=== PATIENT | male | born 1975 | race Hispanic/Latino ===

== ENCOUNTER 2019-08-30 11:31 | Inpatient (IN) | payer SELFPAY ==
[2019-08-30] MEDS ORDERED: ACETAMINOPHEN 500 MG TAB PO ONE (12:05)
[2019-08-30] MEDS ORDERED: SODIUM CHLORIDE 0.9% 1000ML 1,000 ML IVS ONE (12:05)
--- NOTE | 2019-08-30 12:09 | ED.PDOC ---
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 Denies: chills EENTM: States: no symptoms reported Respiratory: States: cough, short of breath Cardiology: States: no symptoms reported Gastrointestinal/Abdominal: States: no symptoms reported Genitourinary: States: no symptoms reported Musculoskeletal: States: no symptoms reported. Denies: neck pain Skin: States: no symptoms reported Neurological: States: no symptoms reported Endocrine: States: no symptoms reported Hematologic/Lymphatic: States: no symptoms reported All other Systems: Reviewed and Negative Past Medical History (General) - Patient Medical History Hx Stroke: No Hx Congestive Heart Failure: No Hx Diabetes: No Surgical History: no surgical history - Vaccination History Hx Influenza Vaccination: No - Social History Hx Tobacco Use: Yes Family Medical History - Family History Father Family History: Unknown Living Status: Unknown Physical Exam - Physical Exam General Appearance: Alert, Other - Coughing during exam but otherwise comfortable appearing ENT Exam: normal ENT inspection Neck: non-tender, full range of motion Respiratory: no respiratory distress, no accessory muscle use, decreased breath sounds Cardiovascular/Chest: regular rate, rhythm, no edema Gastrointestinal/Abdominal: normal bowel sounds, non tender Extremity: normal range of motion, non-tender 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 Here with 102F temp and satting 86-89% on room air. Placed on 3L NC satting 94%. Labs with WBC 12.7k, elevated AST > ALT, anion gap 19. CXR with right sided infiltrates and cardiomegaly. Discussed with patient who agrees to admission and discussed with Haylee Landaverde who agrees to accept patient for pneumonia with sepsis and acute hypoxic respiratory failure. Patient given Rocephin, Azithromycin, and Vancomycin. - Results/Orders Results/Orders: CXR: Reporting MD: Alan Lin Room Worker date: Dictation date: EXAM DESCRIPTION: Chest,2 Views CLINICAL HISTORY: 43 years Male, Cough , fever, decreased breath sounds COMPARISON: None. TECHNIQUE: Frontal and lateral views of the chest. IMPRESSION: Enlarged cardiac silhouette. Bibasilar consolidation in the right greater left lungs which may represent pulmonary edema versus pneumonia or aspiration. No pleural effusion or pneumothorax. Thoracic spondylosis. Electronically signed by: Alan Lin MD 08/30/2019 12:49 PM CDT 08/30/19 12:04 IV:Start .ONCE 08/30/19 12:05 Sodium Chloride 0.9% 1000ML [Ns 1000 ml] 1,000 ml IVS ONCE 08/30/19 12:15 EKG .ONCE 08/30/19 12:43 cefTRIAXone SODIUM [Rocephin] 2 gm Sodium Chl 0.9% 100Ml Mini-Bag [NS 100ml MINI-BAG+] 100 ml IVPB ONCE 08/30/19 12:58 BLOOD CULTURE Stat 08/31/19 09:00 Oxygen Daily Laboratory Results - last 24 hr 08/30/19 08/30/19 08/30/19 12:24 12:24 12:24 WBC 12.7 H RBC 3.84 L Hgb 12.6 L Hct 37.0 L MCV 96.4 H MCH 32.8 H MCHC 34.0 RDW 14.0 Plt Count 467 H MPV 9.3 Absolute Neuts (auto) 11.00 H Absolute Lymphs (auto) 1.20 Absolute Monos (auto) 0.40 Absolute Eos (auto) 0.00 Absolute Basos (auto) 0.10 Neutrophils % 86.5 H Lymphocytes % 9.5 L Monocytes % 3.4 Eosinophils % 0.0 L Basophils % 0.6 Sodium 136 Potassium 3.7 Chloride 97 L Carbon Dioxide 23 Anion Gap 19.7 H BUN 9 Creatinine 0.76 BUN/Creatinine Ratio 11.8 Random Glucose 109 H Serum Osmolality 271.2 L Lactic Acid Calcium 9.0 Total Bilirubin 0.5 AST 275 H ALT 118 H Alkaline Phosphatase 116 Troponin I 0.02 Serum Total Protein 8.5 H Albumin 2.9 L Globulin 5.6 H Albumin/Globulin Ratio 0.5 L 08/30/19 12:24 WBC RBC Hgb Hct MCV MCH MCHC RDW Plt Count MPV Absolute Neuts (auto) Absolute Lymphs (auto) Absolute Monos (auto) Absolute Eos (auto) Absolute Basos (auto) Neutrophils % Lymphocytes % Monocytes % Eosinophils % Basophils % Sodium Potassium Chloride Carbon Dioxide Anion Gap BUN Creatinine BUN/Creatinine Ratio Random Glucose Serum Osmolality Lactic Acid 1.3 Calcium Total Bilirubin AST ALT Alkaline Phosphatase Troponin I Serum Total Protein Albumin Globulin Albumin/Globulin Ratio - EKG/XRAY/CT EKG: Sinus, no ST T wave changes Departure - Departure Clinical Impression: Sepsis due to pneumonia, Sepsis with acute hypoxic respiratory failure, Transaminitis Disposition: Admit Patient Condition: Fair Home Medications: Ambulatory Orders NK 08/30/19 Decision To Admit - Decistion To Admit Decision to Admit Reason: Admit from ER - Sepsis with pneumonia and acute hypoxic respiratory failure Decision to Admit Date: 08/30/19 Decision to Admit Time: 13:06
[2019-08-30] MEDS ORDERED: AZITHROMYCIN 250 MG TAB PO ONE (12:43)
[2019-08-30] MEDS ORDERED: cefTRIAXone SODIUM 2 GM in SODIUM CHL 0.9% 100ML MINI-BAG 100 ML IVPB ONE (12:43)
[2019-08-30] MEDS ORDERED: SODIUM CHL 0.9% 100ML MINI-BAG 100 ML IVPB ONE (12:47)
--- NOTE | 2019-08-30 12:50 | RAD ---
EXAM DESCRIPTION: Chest,2 Views CLINICAL HISTORY: 43 years Male, Cough , fever, decreased breath sounds COMPARISON: None. TECHNIQUE: Frontal and lateral views of the chest. IMPRESSION: Enlarged cardiac silhouette. Bibasilar consolidation in the right greater left lungs which may represent pulmonary edema versus pneumonia or aspiration. No pleural effusion or pneumothorax. Thoracic spondylosis. Electronically signed by: Alan Lin MD 08/30/2019 12:49 PM CDT
--- NOTE | 2019-08-30 13:19 | HP ---
SUPERVISING PHYSICIAN: Milan Betancourt M.D. CHIEF COMPLAINT: Fever, couth and elevated blood pressure. HISTORY OF PRESENT ILLNESS: This is a 43 year-old male patient who speaks very little [place]an, who came to the Emergency Room today due to elevated fever as well as coughing and shortness of breath that had been going on for about 8 days. His temperature in the Emergency Room was 102.1 with heart rate of 98, blood pressure 185/116, respiratory rate 20, O2 sat 94%. Labs were done and his WBC were 12,700 with hemoglobin 12.6, hematocrit 37 with a left shift on his differential. Sodium 136, potassium 3.7, chloride 97, carbon dioxide 23, BUN 9, creatinine 0.76, glucose 109. AST 275, ALT 118, lactic acid 1.3, troponin 0.02. Blood cultures were completed as well as Influenza A and B that were negative. Chest x-ray showed enlarged cardiac silhouette with bibasilar consolidation, right greater than left which may represent pulmonary edema versus pneumonia or aspiration. No pleural effusion or pneumothorax. He was given some fluids in the Emergency Room as well as some azithromycin and Rocephin. I was called for admission to the hospital. PAST MEDICAL HISTORY: None. PAST SURGICAL HISTORY: None. OUTPATIENT MEDICATIONS: None. ALLERGIES: NO KNOWN DRUG ALLERGIES. FAMILY HISTORY: Unknown. SOCIAL HISTORY: He smokes about 1 pack of cigarettes weekly and he drinks alcoholic beverages 4 to 5 times a week, but he drinks 5 to 10 drinks each night. He has not had any alcoholic beverages in 8 days. REVIEW OF SYSTEMS: Very difficult to get a complete review of systems but he is positive for coughing, headache, muscle aches, shortness of breath and fever. Denies nausea and vomiting. PHYSICAL EXAMINATION: VITAL SIGNS: Temperature 99.4, heart rate 92, blood pressure 165/105, respiratory rate 18, O2 sat 94% on 4 liters nasal cannula. GENERAL: This is a 43 year-old moderately obese male patient who is lying in his hospital bed. He is in mild respiratory distress. HEENT: Normocephalic and atraumatic. Pupils are equal and reactive. Oropharynx is clear. NECK: Supple without mass. RESPIRATORY: Diminished breath sounds at the bases more so on the right than the left. He does have some scattered rhonchi. CHEST: There is equal rise and fall of the chest with inspiration and expiration. CARDIOVASCULAR: Regular rate and rhythm. GASTROINTESTINAL: Abdomen is soft, nondistended, non-tender. Bowel sounds are positive. EXTREMITIES: No clubbing, cyanosis or edema. NEUROLOGIC: He is awake, alert and oriented times three. Cranial nerves II-XII are grossly intact. Skin is warm and dry. LABORATORY: Labs and films are as per the history of present illness. ASSESSMENT: 1. Sepsis related to bibasilar pneumonia most likely community acquired, the right side is worse than the left. His admitting WBCs were 12,700 with a left shift. Temperature 102.1 and heart rate 98. 2. Elevated blood pressure without a diagnosis of hypertension. 3. Cardiomegaly by chest x-ray. 4. Elevated liver function tests most likely secondary to excessive alcohol intake. 5. Tobacco abuse. 6. ETOH abuse. PLAN: I have admitted the patient to the hospital. I have initiated the pneumonia guidelines. I will continue with the Rocephin and the Zithromax as previously ordered, including aggressive pulmonary hygiene, including scheduled and p.r.n. respiratory treatments. He received some Clonidine tonight for his blood pressure and I will start him on a low dose of Lisinopril for his blood pressure. I will repeat his lab in the morning and watch his liver enzymes closely. He will have a PPI for ulcer prophylaxis as well as Lovenox for DVT prophylaxis. Will continue to monitor closely and follow as needed. #[id number] [facility]
[2019-08-30] MEDS ORDERED: ONDANSETRON INJ 4 MG/2 ML VIAL IV PRN (13:42)
[2019-08-30] MEDS ORDERED: cloNIDine HCL 0.1 MG TAB PO ONE (15:07)
[2019-08-30] MEDS: IV SET AND CAP CHANGE INJ INJ SCH (15:09)
[2019-08-30] MEDS: KCL 20 MEQ/NS 1,000 ML IVS PRN ×2 (15:16→23:04)
[2019-08-30] MEDS: ALBUTEROL SULFATE 2.5 MG/3 ML VIAL NEB SCH ×2 (16:34→20:22)
[2019-08-30] MEDS ORDERED: PANTOPRAZOLE SODIUM IV 40 MG VIAL ONE (19:32)
[2019-08-30] MEDS: LISINOPRIL 10 MG TAB PO SCH (19:47)
[2019-08-30] MEDS: ACETAMINOPHEN 325 MG TAB PO PRN (20:00)
[2019-08-30] MEDS: SODIUM CHLORIDE 0.9% (FLUSH) 10 ML SYG IV SCH (20:04)
[2019-08-30] MEDS: ENOXAPARIN SODIUM 40 MG/0.4 ML SYG SUBCU SCH (20:04)
[2019-08-31] MEDS: ALBUTEROL SULFATE 2.5 MG/3 ML VIAL NEB PRN (00:10)
[2019-08-31] MEDS ORDERED: cloNIDine HCL 0.1 MG TAB ONE (00:35)
[2019-08-31] MEDS: cloNIDine HCL 0.1 MG TAB PO PRN ×3 (00:43→15:27)
[2019-08-31] MEDS: ACETAMINOPHEN 325 MG TAB PO PRN (05:43)
[2019-08-31] MEDS: PANTOPRAZOLE SODIUM IV 40 MG VIAL IV SCH (05:44)
[2019-08-31] MEDS: KCL 20 MEQ/NS 1,000 ML IVS PRN ×2 (06:38→17:46)
[2019-08-31] MEDS ORDERED: SODIUM CHL 0.9% 50ML MIN-BAG+ 50 ML IVPB ONE (07:00)
[2019-08-31] MEDS ORDERED: cefTRIAXone SODIUM 1 GM VIAL ONE (07:01)
[2019-08-31] MEDS: LISINOPRIL 10 MG TAB PO SCH (08:14)
[2019-08-31] MEDS: cefTRIAXone SODIUM 1 GM in SODIUM CHL 0.9% 50ML MIN-BAG+ 50 ML IVPB SCH (08:15)
[2019-08-31] MEDS: SODIUM CHLORIDE 0.9% (FLUSH) 10 ML SYG IV SCH ×2 (08:15→21:07)
[2019-08-31] MEDS: ALBUTEROL SULFATE 2.5 MG/3 ML VIAL NEB SCH ×4 (08:23→20:17)
--- NOTE | 2019-08-31 08:36 | RAD ---
Procedure: XR CHEST 2 VIEWS Exam Date: 08/31/2019 Ordering Provider: Haylee Landaverde NP Clinical Indication: Pneumonia Comparison: 08/30/2019 Findings: Cardiomegaly. Bilateral perihilar and bibasilar infiltrates are not significantly changed from prior. No significant pleural effusion. No pneumothorax. No acute osseous abnormality. Impression: 1. Stable multifocal pneumonia. Electronically signed by: Enrique Box MD 08/31/2019 8:34 AM CDT
[2019-08-31] MEDS ORDERED: AZITHROMYCIN IV 500 MG VIAL IVPB ONE (09:19)
[2019-08-31] MEDS ORDERED: SODIUM CHLORIDE 0.9% 250ML 250 ML ONE (09:19)
[2019-08-31] MEDS: AZITHROMYCIN IV 500 MG in SODIUM CHLORIDE 0.9% 250ML 250 ML IVPB SCH (09:26)
[2019-08-31] MEDS ORDERED: methylPREDNISolone SODIUM SUC 125 MG/2 ML VIAL IV ONE (10:33)
--- NOTE | 2019-08-31 10:37 | PN ---
SUPERVISING PHYSICIAN: Sosa Betancourt MD DATE: 08/31/19 SUBJECTIVE: The patient is lying in bed. A associate embalmer/funeral director is present today. He states he is feeling much better with minimal shortness of breath and coughing. I explained to him that we started him on some antihypertensive medications and he agreed. No nausea, vomiting or chest pain. OBJECTIVE: VITAL SIGNS: Temperature 99.5. Heart rate 83. Blood pressure 161/99. Respiratory rate 22. O2 saturation 90% on 4 liters nasal cannula. RESPIRATORY: Diminished breath sounds throughout with a few scattered wheezing in the apices. CARDIAC: Regular rate and rhythm. GASTROINTESTINAL: Abdomen is soft, nondistended, nontender. Bowel sounds are positive. NEUROLOGIC: Awake, alert and oriented times three. LABORATORY: WBCs have improved to 10,900. Hemoglobin 11.3, hematocrit 33.7. Neutrophils 83%. Electrolytes are basically within normal limits. AST has improved slightly to 258, ALT 120. Sputum culture is pending. Preliminary blood cultures are negative to date. Chest x-ray shows stable multifocal pneumonia and no changes from prior. All other labs and films have been reviewed via the EMR. ASSESSMENT: 1. Sepsis related to bibasilar pneumonia most likely community acquired, the right side is worse than the left. His admitting WBCs were 12,700 with a left shift. Temperature 102.1 and heart rate 98. 2. Elevated blood pressure without a diagnosis of hypertension. 3. Cardiomegaly by chest x-ray. 4. Elevated liver function tests most likely secondary to excessive alcohol intake. 5. Tobacco abuse. 6. ETOH abuse. PLAN: We will continue present supportive care including his current antibiotic treatment as well as his aggressive pulmonary hygiene. I may add a small dose of IV steroids due to the wheezing. He has been started on lisinopril for his hypertension and has needed clonidine several times during the night. He will need to go home on that medication. I have had an echocardiogram pending due to his cardiomegaly. I will repeat his lab in the morning. We will continue to monitor the patient closely and follow as needed. #[id number] [facility]
[2019-08-31] MEDS ORDERED: LISINOPRIL 10 MG TAB PO ONE (16:35)
[2019-08-31] MEDS ORDERED: cloNIDine HCL 0.1 MG TAB PO ONE (16:35)
[2019-08-31] MEDS: methylPREDNISolone SODIUM SUC 40 MG/ML VIAL IV SCH (17:49)
[2019-08-31] MEDS: ENOXAPARIN SODIUM 40 MG/0.4 ML SYG SUBCU SCH (20:34)
[2019-09-01] MEDS: methylPREDNISolone SODIUM SUC 40 MG/ML VIAL IV SCH ×5 (00:04→23:13)
[2019-09-01] MEDS: cloNIDine HCL 0.1 MG TAB PO PRN (00:20)
[2019-09-01] MEDS ORDERED: cloNIDine HCL 0.1 MG TAB PO ONE (02:15)
[2019-09-01] MEDS ORDERED: BENZOCAINE-MENTH LOZ (CEPACOL) 1 EA LOZ MT PRN (05:46)
[2019-09-01] MEDS: PANTOPRAZOLE SODIUM IV 40 MG VIAL IV SCH (05:51)
[2019-09-01] MEDS: SODIUM CHLORIDE 0.9% (FLUSH) 10 ML SYG IV PRN (05:53)
[2019-09-01] MEDS: ALBUTEROL SULFATE 2.5 MG/3 ML VIAL NEB PRN (06:17)
[2019-09-01] MEDS ORDERED: LISINOPRIL 10 MG TAB ONE (06:52)
[2019-09-01] MEDS ORDERED: cefTRIAXone SODIUM 1 GM VIAL ONE (06:52)
[2019-09-01] MEDS ORDERED: SODIUM CHL 0.9% 50ML MIN-BAG+ 50 ML IVPB ONE (06:52)
[2019-09-01] MEDS: ALBUTEROL SULFATE 2.5 MG/3 ML VIAL NEB SCH ×4 (08:09→19:57)
[2019-09-01] MEDS: LISINOPRIL 10 MG TAB PO SCH (08:50)
[2019-09-01] MEDS: cefTRIAXone SODIUM 1 GM in SODIUM CHL 0.9% 50ML MIN-BAG+ 50 ML IVPB SCH (08:50)
[2019-09-01] MEDS: SODIUM CHLORIDE 0.9% (FLUSH) 10 ML SYG IV SCH ×2 (08:50→20:41)
--- NOTE | 2019-09-01 09:11 | CT ---
EXAM DESCRIPTION: Chest w/o Contrast CLINICAL HISTORY: 43 years, Male, hypoxic; pna COMPARISON: None TECHNIQUE: Thin-section noncontrast axial CT images are obtained according to our protocol. Reconstructed MPR images are created and reviewed as well. FINDINGS: Lungs: Extensive pulmonary consolidation with appearance most consistent with pneumonia. Lower lobes, right middle lobe and lingula are more extensively involved than the other segments of the upper lobes. No worrisome pulmonary mass or nodule. Mediastinum: Multiple mildly enlarged lymph nodes in the right peritracheal, subcarinal and hilar regions. Subcarinal node behind the right lower lobe bronchus measures 1.4 cm short axis dimension. Lower paratracheal node with a fatty hilum measures 7 mm short axis dimension. 9 mm paraesophageal and paratracheal nodes. Normal vascular contours. Heart size is normal with no pericardial effusion. Chest wall/axilla: No mass or adenopathy. Lower neck/supraclavicular: No mass or adenopathy. Upper abdomen: Unremarkable upper abdominal viscera. Coronal and sagittal reformatted images confirm the findings. Flattened anterior T8 vertebral body may be congenital anomaly or old traumatic compression. IMPRESSION: Extensive bilateral pulmonary infiltrates consistent with pneumonia. Mediastinal adenopathy, most likely reactive. This exam was performed according to our departmental dose-optimization program, which includes automated exposure control, adjustment of the mA and/or kV according to patient size and/or use of iterative reconstruction technique. Total DLP equals 853.32 mGycm. Electronically signed by: Irineo Peraza MD 09/01/2019 9:09 AM CDT
[2019-09-01] MEDS ORDERED: SODIUM CHLORIDE 0.9% 250ML 250 ML ONE (09:38)
[2019-09-01] MEDS ORDERED: AZITHROMYCIN IV 500 MG VIAL IVPB ONE (09:38)
[2019-09-01] MEDS: AZITHROMYCIN IV 500 MG in SODIUM CHLORIDE 0.9% 250ML 250 ML IVPB SCH (09:43)
[2019-09-01] MEDS: guaiFENesin ER TAB 600 MG TAB PO SCH ×2 (12:38→20:41)
--- NOTE | 2019-09-01 13:11 | PN ---
SUPERVISING PHYSICIAN: oSsa Betancourt MD DATE: 09/01/19 SUBJECTIVE: The patient is lying in bed. A lower school spanish teacher is at bedside. His condition was explained to him in detail, both the pneumonia and hypertension and that he would have to have close followup after discharge and most likely would be in here for 2 or 3 more days due to the severity of the pneumonia. He complained of some shortness of breath and coughing, but otherwise no nausea, vomiting, diarrhea, constipation or chest pain. OBJECTIVE: VITAL SIGNS: Temperature 97.9. Heart rate 89. Blood pressure 155/86. Respiratory rate 20 to 28. O2 saturation as low as 86%. It is up to 91% o high flow. RESPIRATORY: Diminished breath sounds throughout with a few scattered rhonchi. There are no expiratory wheezes noted at this time. He is tachypneic. CARDIAC: Regular rate and rhythm. GASTROINTESTINAL: Abdomen is soft, nondistended, nontender. Bowel sounds are positive. NEUROLOGIC: Awake, alert and oriented times three. LABORATORY: Normal white count at 10,000, hemoglobin 12, hematocrit 36.9. He does have a left shift on his differential. Blood gas obtained and his pCO2 was 32, pO2 58, bicarb 20.4, pH 7.42, O2 saturation 89.9. Electrolytes were basically within normal limits. Sputum culture pending. Preliminary blood cultures show no growth after [address] shows extensive bilateral pneumonia, infiltrates consistent with pneumonia, mediastinal adenopathy that is most likely reactive. Echocardiogram shows left ventricular size and systolic function with an estimated ejection fraction of around 65%. All other labs and films have been reviewed via the EMR. ASSESSMENT: 1. Sepsis related to bibasilar pneumonia, most likely community acquired, His admitting WBCs were 12,700 with a left shift, temperature 102.1 and heart rate 98. 2. Hypoxic respiratory failure requiring a high-flow O2 to maintain oxygen saturations. 3. Hypertension, new diagnosed, presently on an APOLLO inhibitor and given clonidine p.r.n. for high blood pressure readings. 4. Cardiomegaly per chest x-ray with an ejection fraction of 65% on recent echocardiogram. 5. Tobacco abuse. 6. ETOH abuse. 7. Elevated liver functions awaiting results of his hepatic panel. PLAN: We will continue present supportive care. I will not titrate his steroids down until tomorrow morning. If he is still having problems with his hypoxia and is requiring high-flow oxygen, we may need to switch him to BiPAP if he continues to desaturate. I will also repeat his lab and chest x-ray in the morning. I did go up to 20 mg daily on his lisinopril and if his blood pressure does not improve, we can add another antihypertensive. I have also recommended and ordered aggressive pulmonary hygiene. Guaifenesin has also been added. He will need a close followup at Dr. Nolasco's office after discharge for his hypertension as well as his breathing issues. A yasmine application has been given to him. We will continue to monitor the patient closely and follow as needed. #[id number] [facility]
[2019-09-01] MEDS: ENOXAPARIN SODIUM 40 MG/0.4 ML SYG SUBCU SCH (20:41)
[2019-09-02] MEDS: SODIUM CHLORIDE 0.9% (FLUSH) 10 ML SYG IV PRN (05:46)
[2019-09-02] MEDS: methylPREDNISolone SODIUM SUC 40 MG/ML VIAL IV SCH ×3 (05:46→18:16)
[2019-09-02] MEDS: PANTOPRAZOLE SODIUM IV 40 MG VIAL IV SCH (05:54)
--- NOTE | 2019-09-02 06:42 | RAD ---
EXAM: XR Chest, 2 Views CLINICAL HISTORY: pna TECHNIQUE: Frontal and lateral views of the chest. COMPARISON: 08/31/2019. FINDINGS: Limitations: None. Lungs: There is slight decreased consolidation within the right midlung. Bilateral lower lung zone airspace disease is otherwise unchanged. Pleural space: Unremarkable. No pneumothorax. Heart: Stable prominent cardiac shadow. Mediastinum: Unremarkable. Bones/joints: Unremarkable. IMPRESSION: There is slight decreased consolidation within the right midlung. Bilateral lower lung zone airspace disease is otherwise unchanged. Electronically signed by: Yaz Faulkner MD 09/02/2019 6:41 AM CDT
[2019-09-02] MEDS: ALBUTEROL SULFATE 2.5 MG/3 ML VIAL NEB SCH ×4 (08:18→20:15)
[2019-09-02] MEDS: SODIUM CHLORIDE 0.9% (FLUSH) 10 ML SYG IV SCH ×2 (10:00→20:02)
[2019-09-02] MEDS ORDERED: SODIUM CHL 0.9% 50ML MIN-BAG+ 50 ML IVPB ONE (10:55)
[2019-09-02] MEDS ORDERED: SODIUM CHLORIDE 0.9% 250ML 250 ML ONE (10:55)
[2019-09-02] MEDS ORDERED: cefTRIAXone SODIUM 1 GM VIAL ONE (10:55)
[2019-09-02] MEDS ORDERED: AZITHROMYCIN IV 500 MG VIAL IVPB ONE (10:56)
[2019-09-02] MEDS: cefTRIAXone SODIUM 1 GM in SODIUM CHL 0.9% 50ML MIN-BAG+ 50 ML IVPB SCH (11:07)
[2019-09-02] MEDS: guaiFENesin ER TAB 600 MG TAB PO SCH ×2 (11:07→20:01)
[2019-09-02] MEDS: LISINOPRIL 10 MG TAB PO SCH (11:07)
[2019-09-02] MEDS: AZITHROMYCIN IV 500 MG in SODIUM CHLORIDE 0.9% 250ML 250 ML IVPB SCH (11:47)
[2019-09-02] MEDS: IV SET AND CAP CHANGE INJ INJ SCH (17:34)
[2019-09-02] MEDS: ENOXAPARIN SODIUM 40 MG/0.4 ML SYG SUBCU SCH (20:01)
[2019-09-03] MEDS: ALBUTEROL SULFATE 2.5 MG/3 ML VIAL NEB PRN (00:20)
[2019-09-03] MEDS: methylPREDNISolone SODIUM SUC 40 MG/ML VIAL IV SCH ×4 (00:24→17:20)
[2019-09-03] MEDS: PANTOPRAZOLE SODIUM IV 40 MG VIAL IV SCH (06:05)
[2019-09-03] MEDS ORDERED: SODIUM CHL 0.9% 50ML MIN-BAG+ 50 ML IVPB ONE (07:46)
[2019-09-03] MEDS ORDERED: SODIUM CHLORIDE 0.9% 250ML 250 ML ONE (07:46)
[2019-09-03] MEDS ORDERED: cefTRIAXone SODIUM 1 GM VIAL ONE (07:46)
[2019-09-03] MEDS ORDERED: AZITHROMYCIN IV 500 MG VIAL IVPB ONE (07:47)
[2019-09-03] MEDS: ALBUTEROL SULFATE 2.5 MG/3 ML VIAL NEB SCH ×4 (08:19→20:37)
[2019-09-03] MEDS: guaiFENesin ER TAB 600 MG TAB PO SCH ×2 (08:35→20:08)
[2019-09-03] MEDS: LISINOPRIL 10 MG TAB PO SCH (08:35)
[2019-09-03] MEDS: cefTRIAXone SODIUM 1 GM in SODIUM CHL 0.9% 50ML MIN-BAG+ 50 ML IVPB SCH (08:35)
[2019-09-03] MEDS: SODIUM CHLORIDE 0.9% (FLUSH) 10 ML SYG IV SCH ×2 (08:58→20:09)
[2019-09-03] MEDS: AZITHROMYCIN IV 500 MG in SODIUM CHLORIDE 0.9% 250ML 250 ML IVPB SCH (09:30)
--- NOTE | 2019-09-03 10:14 | PN ---
DATE: 09/02/19 SUPERVISING PHYSICIAN: Sosa Betancourt MD SUBJECTIVE: The patient seems to be doing better today but still reporting some shortness of breath. He remains afebrile. OBJECTIVE: VITAL SIGNS: Temperature 98.3. Heart rate 88. Blood pressure 176/94. Respiratory rate 25, oxygen saturation 96R on high flow nasal cannula. . GENERAL: The patient is resting comfortably, appears to be in no acute distress. He is alert. RESPIRATORY: Lung sounds just diminished toward the bases. No obvious rhonchi, rales, or wheezes but he remains tachypneic. CARDIAC: Regular rate and rhythm. GASTROINTESTINAL: Abdomen is soft, nondistended, nontender. Bowel sounds are positive. EXTREMITIES: Without edema. NEUROLOGIC: Alert and oriented times three. LABORATORY: White count is up to 14,500 but he is on Solu-Medrol. Differential continues to show a left shift, no bands. Platelet count 586,000. Hemoglobin 11.8, hematocrit 35.4 and stable. Chemistries show normal electrolytes. BUN 15, creatinine 0.57, magnesium normal, calcium normal at 9. Bilirubin normal at 0.4. AST elevated at 279, ALT 222. MICROBIOLOGY: Sputum cultures pending. Blood cultures showing to be negative after 3 days. Influenza A and B by PCR on admission negative. RADIOLOGY: 2-view chest x-ray this morning shows slight decreased consolidation within the right mid lung with bilateral lower lung zone air space disease but otherwise unchanged. ASSESSMENT: 1. Sepsis related to bibasilar pneumonia, most likely community acquired, His admitting WBCs were 12,700 with a left shift, temperature 102.1 and heart rate 98. 2. Hypoxic respiratory failure requiring a high-flow O2 to maintain oxygen saturations. 3. Hypertension, new diagnosed, presently on an APOLLO inhibitor and given clonidine p.r.n. for high blood pressure readings. 4. Cardiomegaly per chest x-ray with an ejection fraction of 65% on recent echocardiogram. 5. Tobacco abuse. 6. ETOH abuse. 7. Elevated liver functions awaiting results of his hepatic panel. PLAN: We will continue with the steroids at 40 every 6 hours as he is showing some slow response to treatment but is improving. He seems to be doing well on high flow nasal cannula. We will work to titrate him down to hopefully room air at some point. He is still having some issues with his blood pressure. Will continue to follow those and treat as needed. He continues on aggressive pulmonary hygiene as well as DVT prophylaxis with Lovenox. Will continue to work to titrate him off his high flow nasal cannula. Will continue antibiotic coverage at this point with Rocephin and azithromycin as he is showing not any worse but a little improvement. Until we can transition him to outpatient management, we will continue to monitor and treat as needed. [facility][id number] [facility]
[2019-09-03] MEDS: amLODIPine BESYLATE 5 MG TAB PO SCH (13:34)
--- NOTE | 2019-09-03 19:14 | PN ---
DATE: 09/03/19 SUPERVISING PHYSICIAN: Milan Betancourt M.D. SUBJECTIVE: The patient is making slow progress. He is actually down on his high flow to 8 liters but does show desaturations when he gets up and ambulates into the high 80s. He has had no further complaints. He has been afebrile. OBJECTIVE: VITAL SIGNS: Temperature 97.5, pulse 78, blood pressure 158/98, respirations 18, satting 96% on high flow at 8 liters. GENERAL: The patient is resting comfortably. Appears to be in no acute distress. CHEST: Lung sounds are improved from yesterday. No wheezing or rhonchi is noted. HEART: Regular rate and rhythm. ABDOMEN: Soft, non-tender. Positive bowel sounds. EXTREMITIES: Without any edema. NEUROLOGIC: He is alert and oriented times three. LABORATORY: White count is down to 12,000. Hemoglobin is stable at 11.8, hematocrit 35.9, platelet count is up to 613,000. Differential shows a left shift. Chemistries show normal electrolytes today with creatinine 0.67, calcium 8.7. MICROBIOLOGY: Blood cultures are negative after 3 days. Sputum culture is still pending. RADIOLOGY: No additional radiographic studies today. ASSESSMENT: 1. Sepsis related to bibasilar pneumonia, most likely community acquired, His admitting WBCs were 12,700 with a left shift, temperature 102.1 and heart rate 98. 2. Hypoxic respiratory failure requiring a high-flow O2 to maintain oxygen saturations. 3. Hypertension, newly diagnosed, currently on APOLLO inhibitor needing clonidine p.r.n. with continued high blood pressure readings with continuation of additional management for better control. 4. Cardiomegaly per chest x-ray with an ejection fraction of 65% on recent echocardiogram. 5. Tobacco abuse. 6. ETOH abuse. 7. Elevated liver functions awaiting results of his hepatic panel. PLAN: Will continue with current plan of care at this point with azithromycin and Rocephin, and aggressive pulmonary hygiene as he is showing slow progress. He is remaining hemodynamically stable. He has been afebrile. Will continue to titrate him down on oxygen. He continues to be on Lovenox for DVT prophylaxis. Will go ahead and add some Norvasc to his blood pressure regimen to see if we can get a little bit better control. Until we can transition to outpatient management will continue to monitor and treat as needed. [facility][id number] [facility]
[2019-09-03] MEDS: ENOXAPARIN SODIUM 40 MG/0.4 ML SYG SUBCU SCH (20:08)
[2019-09-04] MEDS: methylPREDNISolone SODIUM SUC 40 MG/ML VIAL IV SCH ×5 (00:25→23:44)
[2019-09-04] MEDS: PANTOPRAZOLE SODIUM IV 40 MG VIAL IV SCH (06:02)
[2019-09-04] MEDS ORDERED: SODIUM CHL 0.9% 50ML MIN-BAG+ 50 ML IVPB ONE (07:53)
[2019-09-04] MEDS ORDERED: cefTRIAXone SODIUM 1 GM VIAL ONE (07:54)
[2019-09-04] MEDS: LISINOPRIL 10 MG TAB PO SCH (08:12)
[2019-09-04] MEDS: guaiFENesin ER TAB 600 MG TAB PO SCH ×2 (08:12→20:07)
[2019-09-04] MEDS: amLODIPine BESYLATE 5 MG TAB PO SCH (08:12)
[2019-09-04] MEDS: cefTRIAXone SODIUM 1 GM in SODIUM CHL 0.9% 50ML MIN-BAG+ 50 ML IVPB SCH (08:12)
[2019-09-04] MEDS: SODIUM CHLORIDE 0.9% (FLUSH) 10 ML SYG IV SCH ×2 (08:13→20:07)
--- NOTE | 2019-09-04 08:21 | RAD ---
EXAM DESCRIPTION: Chest,2 Views CLINICAL HISTORY: pneumonia COMPARISON: 09/02/2019 TECHNIQUE: PA/lateral FINDINGS/IMPRESSION: Slightly improved aeration of the lungs with decreased bilateral lower lung airspace consolidations. A band of consolidation within the left lower lung/lingula persists (possibly with associated atelectasis). No significant pneumothorax or pleural effusion. The heart is normal in size. Chronic appearing midthoracic spine anterior vertebral body height loss is unchanged. No acute osseous abnormality. Electronically signed by: Stiven Palacios DO 09/04/2019 8:19 AM CDT
[2019-09-04] MEDS: ALBUTEROL SULFATE 2.5 MG/3 ML VIAL NEB SCH ×4 (08:30→20:15)
[2019-09-04] MEDS ORDERED: AZITHROMYCIN IV 500 MG VIAL IVPB ONE (08:58)
[2019-09-04] MEDS ORDERED: SODIUM CHLORIDE 0.9% 250ML 250 ML ONE (08:58)
[2019-09-04] MEDS: AZITHROMYCIN IV 500 MG in SODIUM CHLORIDE 0.9% 250ML 250 ML IVPB SCH (09:03)
[2019-09-04] MEDS ORDERED: FLUCONAZOLE 150 MG TAB PO ONE (13:59)
[2019-09-04] MEDS ORDERED: GLUCAGON INJ 1 MG VIAL SUBCU PRN (14:01)
[2019-09-04] MEDS ORDERED: DEXTROSE 50% 25 GM/50 ML SYG IV PRN (14:01)
[2019-09-04] MEDS: INSULIN LISPRO 100 UNITS/ML PEN SUBCU SCH ×2 (17:05→20:59)
[2019-09-04] MEDS: NYSTATIN SUSPENSION 500,000/5 ML UD MT SCH ×2 (17:05→20:06)
--- NOTE | 2019-09-04 17:31 | PN ---
DATE: 09/04/19 SUPERVISING PHYSICIAN: Milan Betancourt M.D. SUBJECTIVE: The patient continues to improve but slowly. He is still requiring 8 liters high flow nasal cannula. If he gets off of it and ambulates in the least little bit he shows desaturations into the 80s. He has not had any fevers. He has not had any abdominal pains, constipation, nausea or vomiting or any chest pains. OBJECTIVE: VITAL SIGNS: Temperature 97.7, pulse 85, blood pressure 156/92, satting 91% on high flow nasal cannula at 6 liters. Weight 96.5 kg. GENERAL: The patient appears to be resting comfortably in no acute distress. He is alert. CHEST: Lung sounds are improved from previous days and just diminished towards the bases, but no audible wheezing or rhonchi are noted. HEART: Regular rate and rhythm. ABDOMEN: Soft but obese, non-tender with positive bowel sounds. EXTREMITIES: Without any edema. NEUROLOGIC: He is alert and oriented times three. LABORATORY: CBC shows a white count of 13,400, hemoglobin and hematocrit are showing to be stable at 12.4 and 37.5. RBC indices show a macrocytosis. Platelet count 669 with differential continuing to show a left shift. Chemistries show normal electrolytes today and to be stable. AST and ALT were elevated previously at 279 and 222. Blood sugars showing elevation between 106 to 280 awaiting hemoglobin A1c. MICROBIOLOGY: Sputum culture showed just moderate growth of yeast, otherwise normal casi. Blood cultures were negative after 5 days. RADIOLOGY: Chest x-ray showed slightly improved aeration of the lungs with decreased bilateral lower lung airspace consolidations with a band of consolidation within the left lower lung lingula possibly associated with atelectasis. There was no significant pneumothorax or pleural effusions. ASSESSMENT: 1. Sepsis due to bibasilar pneumonia, community acquired showing slow improvement with antibiotics and IV corticosteroids. 2. Hypoxic respiratory failure due to #1 requiring high-flow O2. 3. Newly diagnosed hypertension currently on Lisinopril and Norvasc showing some improvement. 4. Macrocytic anemia probably due to alcohol abuse. 5. Elevated transaminases secondary to chronic alcohol abuse. 6. Cardiomegaly with an ejection fraction on current admission showing to be 65%. 7. Tobacco abuse in a smoker. PLAN: Will continue with azithromycin and Rocephin, and again aggressive pulmonary hygiene and moderate dose of corticosteroids as he is showing continued slow progress. Still trying to get him off the high flow nasal cannula. His x-rays are showing some improvement. Hopefully will be able to start titrating his steroids. I did start him on Norvasc last night along with Lisinopril to try to get better control of his blood pressure. I have an hemoglobin A1c pending. As he did show some yeast in his sputum, I am not sure if he is truly diabetic or if this is related to the long course of antibiotics and steroids. Will go ahead and start him on sliding scale given that he has had some hyperglycemia noted on labs but no history of diabetes. Anticipate hopefully being able to discharge within the next 2 days as we get him hopefully off oxygen and he is able to ambulate without any desaturations. He is again encouraged to stop smoking. Until we can transition to outpatient management will continue to treat as needed. #[id number] [facility]
[2019-09-04] MEDS: ENOXAPARIN SODIUM 40 MG/0.4 ML SYG SUBCU SCH (20:06)
[2019-09-05] MEDS: PANTOPRAZOLE SODIUM IV 40 MG VIAL IV SCH (05:35)
[2019-09-05] MEDS: methylPREDNISolone SODIUM SUC 40 MG/ML VIAL IV SCH ×4 (05:35→23:28)
[2019-09-05] MEDS: INSULIN LISPRO 100 UNITS/ML PEN SUBCU SCH ×4 (07:13→20:55)
[2019-09-05] MEDS ORDERED: SODIUM CHL 0.9% 50ML MIN-BAG+ 50 ML IVPB ONE (07:57)
[2019-09-05] MEDS ORDERED: cefTRIAXone SODIUM 1 GM VIAL ONE (07:58)
[2019-09-05] MEDS ORDERED: AZITHROMYCIN IV 500 MG VIAL IVPB ONE (08:01)
[2019-09-05] MEDS ORDERED: SODIUM CHLORIDE 0.9% 250ML 250 ML ONE (08:01)
[2019-09-05] MEDS: ALBUTEROL SULFATE 2.5 MG/3 ML VIAL NEB SCH (08:18)
[2019-09-05] MEDS: amLODIPine BESYLATE 5 MG TAB PO SCH (09:06)
[2019-09-05] MEDS: guaiFENesin ER TAB 600 MG TAB PO SCH ×2 (09:06→20:55)
[2019-09-05] MEDS: LISINOPRIL 10 MG TAB PO SCH (09:06)
[2019-09-05] MEDS: cefTRIAXone SODIUM 1 GM in SODIUM CHL 0.9% 50ML MIN-BAG+ 50 ML IVPB SCH (09:06)
[2019-09-05] MEDS: NYSTATIN SUSPENSION 500,000/5 ML UD MT SCH ×4 (09:06→20:56)
[2019-09-05] MEDS: SODIUM CHLORIDE 0.9% (FLUSH) 10 ML SYG IV SCH ×2 (09:07→20:56)
[2019-09-05] MEDS: AZITHROMYCIN IV 500 MG in SODIUM CHLORIDE 0.9% 250ML 250 ML IVPB SCH (11:56)
[2019-09-05] MEDS: IPRATROPIUM/ALBUTEROL 3 ML VIAL NEB SCH ×3 (12:44→20:55)
[2019-09-05] MEDS: IV SET AND CAP CHANGE INJ INJ SCH (12:44)
--- NOTE | 2019-09-05 13:42 | PN ---
SUPERVISING PHYSICIAN: Drew Alvarez MD DATE: 09/05/19 SUBJECTIVE: The patient is not complaining of any significant shortness of breath, however, he is still requiring 5 to 6 liters of oxygen to maintain an O2 saturation right around 90%. No nausea or vomiting, no other complaints at this point. OBJECTIVE: VITAL SIGNS: Blood pressure 140/83. Heart rate 71. Respiratory rate 16. Temperature 98.0. Oxygen saturation 92%. GENERAL: Mr. Howell is a 43-year-old male patient in no active distress. NEUROLOGIC: Alert and oriented. LUNGS: Diminished, but otherwise clear to auscultation bilaterally. CARDIOVASCULAR: Regular rate and rhythm. Normal S1, S2. ABDOMEN: Soft. Positive bowel sounds. GENITOURINARY: Deferred. EXTREMITIES: Lower extremities with no edema. LABORATORY: He did not have any labs today. Chest x-ray was not done today. ASSESSMENT: 1. Sepsis secondary to bibasilar pneumonia. 2. Hypoxia, secondary to #1. 3. Hypertension. 4. Anemia. 5. Elevated transaminases, likely secondary to chronic alcohol abuse. 6. Tobacco abuse with possible chronic obstructive pulmonary disease. PLAN: The patient seems to be stepwise improving, but very slowly. I will reduce his IV steroids to 20 mg IV q.6h. from the 40 mg IV q.6h. that he was getting. We will continue all other therapies at this time. [facility][id number] [facility]
[2019-09-05] MEDS: ENOXAPARIN SODIUM 40 MG/0.4 ML SYG SUBCU SCH (20:55)
[2019-09-06] MEDS: methylPREDNISolone SODIUM SUC 40 MG/ML VIAL IV SCH ×3 (05:33→20:20)
[2019-09-06] MEDS: PANTOPRAZOLE SODIUM IV 40 MG VIAL IV SCH (05:34)
[2019-09-06] MEDS: IPRATROPIUM/ALBUTEROL 3 ML VIAL NEB SCH ×4 (08:10→20:02)
[2019-09-06] MEDS ORDERED: cefTRIAXone SODIUM 1 GM VIAL ONE (08:59)
[2019-09-06] MEDS ORDERED: SODIUM CHL 0.9% 50ML MIN-BAG+ 50 ML IVPB ONE (08:59)
[2019-09-06] MEDS ORDERED: SODIUM CHLORIDE 0.9% 250ML 0 ML ONE (08:59)
[2019-09-06] MEDS ORDERED: AZITHROMYCIN IV 500 MG VIAL IVPB ONE (09:00)
[2019-09-06] MEDS: NYSTATIN SUSPENSION 500,000/5 ML UD MT SCH ×4 (09:08→20:20)
[2019-09-06] MEDS: amLODIPine BESYLATE 5 MG TAB PO SCH (09:08)
[2019-09-06] MEDS: cefTRIAXone SODIUM 1 GM in SODIUM CHL 0.9% 50ML MIN-BAG+ 50 ML IVPB SCH (09:08)
[2019-09-06] MEDS: LISINOPRIL 10 MG TAB PO SCH (09:08)
[2019-09-06] MEDS: guaiFENesin ER TAB 600 MG TAB PO SCH ×2 (09:08→20:20)
[2019-09-06] MEDS: SODIUM CHLORIDE 0.9% (FLUSH) 10 ML SYG IV SCH ×2 (09:08→20:20)
--- NOTE | 2019-09-06 09:18 | RAD ---
EXAM DESCRIPTION: Chest,1 View CLINICAL HISTORY: 43 years Male, pneumonia COMPARISON: 09/04/2019 TECHNIQUE: Single frontal view of the chest. IMPRESSION: Stably enlarged cardiac silhouette. Low inspiratory volume which can accentuate the pulmonary markings. Mildly improved but residual mild bibasilar opacities which may represent edema versus pneumonia or aspiration. Probable small left pleural effusion. No right pleural effusion or pneumothorax. Included osseous structures intact. Electronically signed by: Alan Lin MD 09/06/2019 9:16 AM CDT
[2019-09-06] MEDS: INSULIN LISPRO 100 UNITS/ML PEN SUBCU SCH ×4 (09:38→21:17)
[2019-09-06] MEDS: levoFLOXacin 750MG IV 750 MG in PREMIX BAG 1 BAG IVPB SCH (10:16)
[2019-09-06] MEDS: FLUCONAZOLE 100 MG TAB PO SCH (10:17)
--- NOTE | 2019-09-06 10:25 | PN ---
SUPERVISING PHYSICIAN: Drew Alvarez MD DATE: 09/06/19 SUBJECTIVE: The patient is about the same as he was yesterday. He is not really feeling overly short of breath. He is still requiring 3 to 4 liters of oxygen to maintain O2 saturations in the low 90s. He is ambulating in the [place]opez on occasion. He does not feel as though he is more short of breath than he was. OBJECTIVE: VITAL SIGNS: Blood pressure 125/80. Heart rate 68. Respiratory rate 18. Temperature 98.0. Oxygen saturation 92%. GENERAL: Mr. Howell is a 43-year-old male patient in no active distress. NEUROLOGIC: Alert and oriented. LUNGS: Diminished in the bases, but otherwise clear to auscultation bilaterally. CARDIOVASCULAR: Regular rate and rhythm. Normal S1, S2. ABDOMEN: Soft. Positive bowel sounds. EXTREMITIES: Lower extremities with no edema. LABORATORY: Labs were done which show an elevated white count at 14.4 which is more than a couple of days ago when it was 13.4. Platelet count has gone up to 692. Hemoglobin is stable at 13.6. Chemistry is pretty much unremarkable except for the hyperglycemia at 198. RADIOLOGY: His chest x-ray shows a little bit of improved aeration, but still with a residual left pleural effusion and a decreased inspiratory effort. ASSESSMENT: 1. Bibasilar pneumonia, left greater than right. 2. Hypoxia, secondary to #1. 3. Hypertension. 4. Anemia. 5. Elevated transaminases, likely secondary to chronic alcohol abuse. 6. Tobacco abuse with possible chronic obstructive pulmonary disease. PLAN: With the lack of active wheezing, I am going to further reduce his steroids to 20 mg every 12 hours. He has been on Rocephin and azithromycin for a week. I am going to discontinue these two medications, however, I am going to go ahead and put him on some Levaquin due to the fact that his white count is a little bit more elevated. This could definitely be due to the steroids, but not I completely sure, especially with the continuous hypoxia as well as the left pleural effusion. I am going to go ahead and do a CT scan of his chest to ensure that the left effusion is not an empyema or parapneumonic effusion. [facility][id number] [facility]
--- NOTE | 2019-09-06 12:26 | CT ---
EXAM DESCRIPTION: Chest w/o Contrast CLINICAL HISTORY: 43 years, Male, pneumonia COMPARISON: Previous CT chest September 01, 2019 TECHNIQUE: Thin-section noncontrast axial CT images are obtained according to our protocol. Reconstructed MPR images are created and reviewed as well. FINDINGS: Lungs: Infiltrates in the upper lobes appear improved with decreased extent and decreased density. Relatively dense consolidation remains in the lingula and right middle lobe. Dense consolidation remains in both lower lobes consistent with pneumonia plus volume loss. The superior segments of the lower lobes appear improved bilaterally but the basilar segments do not. No worrisome pulmonary mass or nodule. No pleural effusions. Mediastinum: Lymph nodes are smaller than on the previous study consistent with improvement. Normal vascular contours. Heart size is large with no pericardial effusion. Chest wall/axilla: No mass or adenopathy. Lower neck/supraclavicular: No mass or adenopathy. Normal thyroid gland. Upper abdomen: Unremarkable upper abdominal viscera. Coronal and sagittal reformatted images confirm the findings. IMPRESSION: Overall improved pulmonary infiltrates. Decreased size of reactive mediastinal nodes consistent with improvement. This exam was performed according to our departmental dose-optimization program, which includes automated exposure control, adjustment of the mA and/or kV according to patient size and/or use of iterative reconstruction technique. Total DLP equals 767.08 mGycm. Electronically signed by: Irineo Peraza MD 09/06/2019 12:24 PM CDT
[2019-09-06] MEDS: ENOXAPARIN SODIUM 40 MG/0.4 ML SYG SUBCU SCH (20:20)
[2019-09-07] MEDS: PANTOPRAZOLE SODIUM IV 40 MG VIAL IV SCH (06:07)
[2019-09-07] MEDS: INSULIN LISPRO 100 UNITS/ML PEN SUBCU SCH ×4 (07:17→20:58)
[2019-09-07] MEDS: IPRATROPIUM/ALBUTEROL 3 ML VIAL NEB SCH ×4 (08:08→20:33)
[2019-09-07] MEDS: FLUCONAZOLE 100 MG TAB PO SCH (08:56)
[2019-09-07] MEDS: amLODIPine BESYLATE 5 MG TAB PO SCH (08:56)
[2019-09-07] MEDS: guaiFENesin ER TAB 600 MG TAB PO SCH ×2 (08:56→20:07)
[2019-09-07] MEDS: LISINOPRIL 10 MG TAB PO SCH (08:56)
[2019-09-07] MEDS: NYSTATIN SUSPENSION 500,000/5 ML UD MT SCH ×4 (08:57→20:11)
[2019-09-07] MEDS: methylPREDNISolone SODIUM SUC 40 MG/ML VIAL IV SCH (08:57)
[2019-09-07] MEDS: SODIUM CHLORIDE 0.9% (FLUSH) 10 ML SYG IV SCH ×2 (08:57→20:07)
[2019-09-07] MEDS: predniSONE 20 MG TAB PO SCH (10:43)
[2019-09-07] MEDS: levoFLOXacin 750MG IV 750 MG in PREMIX BAG 1 BAG IVPB SCH (10:44)
--- NOTE | 2019-09-07 17:31 | PN ---
DATE: 09/07/19 SUPERVISING PHYSICIAN: Drew Alvarez M.D. SUBJECTIVE: The patient states he feels a little bit better today. He is breathing okay but still requiring oxygen at 3 to 4 liters. He has been walking in the [place]. OBJECTIVE: VITAL SIGNS: Blood pressure 121/83, heart rate 85, respiratory rate 18, temperature 98.4, oxygen saturation 92% on 4 liters. GENERAL: Mr. Howell is a 43 year-old male patient without any distress at this time. NEUROLOGIC: The patient is alert and oriented. LUNGS: Clear to auscultation bilaterally. CARDIOVASCULAR: The patient has a regular rate and rhythm. Normal S1 and S2. ABDOMEN: Soft, positive bowel sounds. EXTREMITIES: Lower extremities with no edema. ASSESSMENT: 1. Bibasilar pneumonia, improving per CT scan report from yesterday. 2. Hypoxia, secondary to #1. 3. Hypertension. 4. Anemia. 5. Chronic nicotine dependency with possible chronic obstructive pulmonary disease. 6. Elevated transaminases, likely secondary to chronic alcohol abuse. PLAN: At this point, the patient clinically is improving, however, still requiring a significant amount of oxygen to keep his O2 saturations even in the low 90s. He is not in distress. His lungs sound better. His radiographic studies are improved but he still shows to have some hypoxia issues. So at this point I am going to put him on 40 mg of prednisone daily and discontinue the IV steroids. Will continue the IV Levaquin and get repeat labs as well as x-ray tomorrow. #[id number] [facility]
[2019-09-07] MEDS: ENOXAPARIN SODIUM 40 MG/0.4 ML SYG SUBCU SCH (20:07)
[2019-09-08] MEDS: PANTOPRAZOLE SODIUM IV 40 MG VIAL IV SCH (06:26)
--- NOTE | 2019-09-08 07:15 | RAD ---
EXAM DESCRIPTION: Chest,1 View CLINICAL HISTORY: 43 years Male, pneumonia follow up COMPARISON: September 06, 2019 TECHNIQUE: AP portable chest. FINDINGS: Single view of the chest shows overlying oxygen tubing with a clear left lung. There is still minimal right perihilar and infrahilar interstitial infiltrate and patchy density particularly at the medial right lung base. Partial clearing and improved aeration is present but complete resolution to a normal appearance has not yet occurred. Peripheral lung field on the right is clear with no significant effusions. Heart size is normal without failure. IMPRESSION: Improving chest with clear left lung and residual perihilar and infrahilar patchy infiltrate remaining on the right. Improved inspiration and expansion of the lung sharp. Electronically signed by: Ag Dove MD 09/08/2019 7:13 AM CDT
[2019-09-08] MEDS: INSULIN LISPRO 100 UNITS/ML PEN SUBCU SCH ×2 (07:54→11:41)
[2019-09-08] MEDS: IPRATROPIUM/ALBUTEROL 3 ML VIAL NEB SCH ×2 (08:23→12:45)
[2019-09-08] MEDS: predniSONE 20 MG TAB PO SCH (09:30)
[2019-09-08] MEDS: NYSTATIN SUSPENSION 500,000/5 ML UD MT SCH ×2 (09:31→13:02)
[2019-09-08] MEDS: amLODIPine BESYLATE 5 MG TAB PO SCH (09:31)
[2019-09-08] MEDS: SODIUM CHLORIDE 0.9% (FLUSH) 10 ML SYG IV SCH (09:31)
[2019-09-08] MEDS: FLUCONAZOLE 100 MG TAB PO SCH (09:31)
[2019-09-08] MEDS: LISINOPRIL 10 MG TAB PO SCH (09:31)
[2019-09-08] MEDS: levoFLOXacin 750MG IV 750 MG in PREMIX BAG 1 BAG IVPB SCH (09:31)
[2019-09-08] MEDS: guaiFENesin ER TAB 600 MG TAB PO SCH (09:31)
[2019-09-08 10:55] VITALS: TEMP 97.8
[2019-09-08 13:34] VITALS: O2SAT 96
[2019-09-08] MEDS: IV SET AND CAP CHANGE INJ INJ SCH (14:14)
[2019-09-08 16:44] VITALS: BP 120/85
[2019-09-09] MEDS ORDERED: PANTOPRAZOLE SODIUM TAB 40 MG PO SCH (06:30)
--- NOTE | 2019-09-09 08:09 | DS ---
SUPERVISING PHYSICIAN: Drew Alvarez MD ADMISSION DIAGNOSIS: 1. Sepsis related to bibasilar pneumonia most likely community acquired, the right side is worse than the left. His admitting WBCs were 12,700 with a left shift. Temperature 102.1 and heart rate 98. 2. Elevated blood pressure without a diagnosis of hypertension. 3. Cardiomegaly by chest x-ray. 4. Elevated liver function tests most likely secondary to excessive alcohol intake. 5. Tobacco abuse. 6. ETOH abuse. DISCHARGE DIAGNOSIS: 1. Bibasilar pneumonia, improving per CT scan with the patient having been on Levaquin for 9 days. 2. Hypoxia, secondary to #1, improved but continuing to need home O2. 3. Hypertension, undiagnosed, having started on medications, showing good response to treatment. 4. Anemia, likely due to underlying alcoholism. 5. Chronic nicotine dependency with possible chronic obstructive pulmonary disease. 6. Elevated transaminases, likely secondary to chronic alcohol abuse. REASON FOR HOSPITALIZATION: This is a 43 year-old male patient who speaks very little Czech, who came to the Emergency Room today due to elevated fever as well as coughing and shortness of breath that had been going on for about 8 days. His temperature in the Emergency Room was 102.1 with heart rate of 98, blood pressure 185/116, respiratory rate 20, O2 sat 94%. Labs were done and his WBC were 12,700 with hemoglobin 12.6, hematocrit 37 with a left shift on his differential. Sodium 136, potassium 3.7, chloride 97, carbon dioxide 23, BUN 9, creatinine 0.76, glucose 109. AST 275, ALT 118, lactic acid 1.3, troponin 0.02. Blood cultures were completed as well as Influenza A and B that were negative. Chest x-ray showed enlarged cardiac silhouette with bibasilar consolidation, right greater than left which may represent pulmonary edema versus pneumonia or aspiration. No pleural effusion or pneumothorax. He was given some fluids in the Emergency Room as well as some azithromycin and Rocephin. LABORATORY: Initial white count on admission was 12,700. It did normalized to 10,000, but elevated up to 14,500 after he was started on high-dose steroids. However, before discharge, it had normalized to 8,400. Hemoglobin 14.2, hematocrit 43.4. Differential did show a left shift which was resolving prior to discharge. He had one blood gas analysis that showed normal pH 7.42, pO2 58, pCO2 32, bicarb 20, base excess less than 2.8. Chemistries on admission showed anion gap 19.7. With treatment, this resolved and normalized. His electrolytes were within normal limits as well as kidney function. Last chemistries on discharge showed sodium 134, potassium 4.5, creatinine 0.66. Blood sugars were fairly elevated, but stabilizing prior to discharge and ranging between 91 and 308. Calcium 8.9. Hemoglobin A1c 6.3. He did have elevated ALT and AST. Initially on admission, AST was 275, ALT 118. Last CMP on 09/02/19 showed continuation of elevation. TSH normal at 1.04, magnesium normal. Bilirubin was normal. No urinalysis was completed. MICROBIOLOGY: Blood culture remained negative after 5 days. Influenza A and B by PCR were negative. Final sputum culture showed just a moderate amount of yeast and normal casi. RADIOLOGY: Initial chest x-ray on admission per radiologic interpretation showed bibasilar consolidations in the right greater lungs with probable pulmonary edema versus pneumonia. He had multiple chest x-rays throughout hospitalization. The last chest x-ray on 09/08/19 on date of discharge was showing improving chest with clear lungs on the left, residual perihilar and infrahilar patchy infiltrate remaining on the right with improved inspiration and expansion of the lung sharp. He also had a couple of CTs of the chest. Initial CT of the chest on 09/01/19 per radiologic interpretation showed extensive bilateral pulmonary infiltrate consistent with pneumonia. Repeat CT on 09/06/19 per radiologic interpretation without contrast showed overall improvement in pulmonary infiltrates, decreased size of reactive mediastinal nodes consistent with improvement. He had an echocardiogram as well which per Dr. Gee showed normal left ventricular function with ejection fraction of 65%. HOSPITAL COURSE: Mr. Howell was admitted for bilateral pneumonia. He was initially treated with azithromycin and Rocephin and was switched to Levaquin after he was showing poor response to treatment. He did have a total of [address] therapy[address] showed significant amount of improvement from admission. He was still requiring oxygen, but was on nasal cannula at 3 liters and saturation in the mid-90s, desaturating on ambulation into the mid-80s. He was showing no complications. He was afebrile. Blood cultures were all negative. Sputum culture was negative except for some yeast. He was treated with Diflucan as well and oral Nystatin. He had aggressive pulmonary hygiene throughout the hospitalization. He was showing good improvement although continuing to need home O2, which was arranged prior to discharge. On the morning of discharge, 09/08/19, it was felt the patient had completed a course of antibiotics and showed improvement enough to continue with outpatient management with continuation of portable oxygen and home O2. He was started on Norvasc and lisinopril for his hypertension. He showed no signs of withdrawal from his reportedly significant alcohol abuse, but continued to need tapering prednisone. PLAN: Mr. Howell was discharged on 09/07/19 with instructions to followup at [facility] to schedule in the next week or sooner if needed. He will take his medications as directed. Arrangements were made for the oxygen through [facility]. He was to wear as directed with nasal cannula at 2 liters and to stop smoking and drinking alcohol. He was given warnings to not smoke on utilizing oxygen and he was to return to the hospital should he have any worsening or concerning symptoms. MEDICATIONS PRESCRIBED ON DISCHARGE: 1. ProAir inhaler 2 puffs q.6h. as needed, #1 inhaler, no refills. 2. Norvasc 5 mg daily, #30, no refills. 3. Guaifenesin 600 mg twice daily, no refills. 4. Lisinopril 20 mg daily, #60, no refills. 5. Prednisone taper 12 day, 10 mg tablets, #30. The patient was not on any home medications prior to admission. DISPOSITION: The patient is discharged home. CONDITION ON DISCHARGE: Stable and improved. #[id number] [facility]
== END 2019-09-08 16:15 | disposition home or self-care (01) | DRG 871 ==
LOC: ER 11:31 → OBSVTOIN 13:17 → MS 13:17
PROVIDERS: ADMIT Nurse Practitioner Acute Care; ATTEND Nurse Practitioner Family
DX: A41.9 Sepsis, unspecified organism (principal); J18.9 Pneumonia, unspecified organism; J44.0 Chronic obstructive pulmonary disease with (acute) lower respiratory infection; J96.01 Acute respiratory failure with hypoxia; F10.10 Alcohol abuse, uncomplicated; I10 Essential (primary) hypertension; D63.8 Anemia in other chronic diseases classified elsewhere; R74.0 Nonspecific elevation of levels of transaminase and lactic acid dehydrogenase [LDH]; E66.9 Obesity, unspecified; F17.210 Nicotine dependence, cigarettes, uncomplicated; Z99.81 Dependence on supplemental oxygen; Z68.32 Body mass index [BMI] 32.0-32.9, adult